=== PATIENT | male | born 1995 | race African-American/Black ===

== ENCOUNTER 2023-07-19 22:52 | Emergency (ER) | payer OTHER ==
[~2023-07-19] VITALS: Ht 180.3 cm; Wt 127.3 kg
[2023-07-20] MEDS ORDERED: ZYRTTAB8 PO (02:06)
[2023-07-20] MEDS ORDERED: RIZA10TA58 (02:06)
[2023-07-20] MEDS ORDERED: ACETAMINOPHEN TAB 650MG DOSE (2X325MG) PO ONE (03:05)
[2023-07-20 03:47] LABS: BASO % 0.3 % (0.0-1.0); EOS % 0.4 % (0.0-3.0); HEMOGLOBIN 13.9 g/dl (13.5-17.5); LYMPH # 0.9 10^3/uL (1.5-5.0); LYMPH % 11.8 % (24.0-44.0); MEAN CORPUSCULAR HEMOGLOBIN 25.4 pg (27.0-33.0); MEAN CORPUSCULAR HGB CONC 33.1 g/dl (32.0-36.5); MEAN CORPUSCULAR VOLUME 76.8 fl (80.0-96.0); MONO # 0.5 10^3/uL (0.0-0.8); MONO % 6.3 % (2.0-8.0); NEUTROPHILS # 6.2 10^3/uL (1.5-8.5); NEUTROPHILS % 80.8 % (36.0-66.0); PLATELET COUNT, AUTOMATED 264 10^3/uL (150-450); RED BLOOD COUNT 5.47 10^6/uL (4.30-6.10); WHITE BLOOD COUNT 7.6 10^3/uL (4.0-10.0)
[2023-07-20 03:53] LABS: ERYTHROCYTE SEDIMENTATION RATE 34 mm/hr (0-15)
[2023-07-20 03:58] LABS: INR 1.05; PROTHROMBIN TIME 13.4 SECONDS (12.5-14.5)
[2023-07-20 03:59] LABS: PARTIAL THROMBOPLASTIN TIME 33.2 SECONDS (24.8-34.2)
[2023-07-20 04:07] LABS: BLOOD UREA NITROGEN 12 MG/DL (9-23); CALCIUM LEVEL 9.3 MG/DL (8.5-10.1); CARBON DIOXIDE LEVEL 27 MMOL/L (20-31); CHLORIDE LEVEL 103 MMOL/L (98-107); CREATININE FOR GFR 1.03 MG/DL (0.70-1.30); GLOMERULAR FILTRATION RATE > 60.0 (>60); GLUCOSE, FASTING 113 MG/DL (60-100); POTASSIUM SERUM 4.6 MMOL/L (3.5-5.1); SODIUM LEVEL 136 MMOL/L (136-145)
[2023-07-20] MEDS ORDERED: CEPHALEXIN 500 MG CAP PO ONE (04:50)
[2023-07-20] MEDS ORDERED: KETOROLAC 30 MG/ML 1ML VIAL As Ordered ONE (04:53)
[2023-07-20] MEDS ORDERED: KETOROLAC 30 MG/ML 1ML VIAL IV ONE (04:55)
[2023-07-20] MEDS ORDERED: CEPH500C PO (04:58)
[2023-07-20 05:30] VITALS: BP 128/74; TEMP 98.1; O2SAT 99
== END 2023-07-20 05:37 | disposition home or self-care (01) ==
LOC: M ED 22:52
DX: R22.41 Localized swelling, mass and lump, right lower limb (principal); M79.671 Pain in right foot; Z79.2 Long term (current) use of antibiotics; Z79.52 Long term (current) use of systemic steroids; Z79.899 Other long term (current) drug therapy; Y92.9 Unspecified place or not applicable; Y93.9 Activity, unspecified; Y99.9 Unspecified external cause status
CPT/HCPCS: 73590; 73630; 80048; 85025; 85610; 85652; 85730; 86140; 93971; 96374; 99284; J1885